=== PATIENT | male | born 1960 | race Caucasian/White ===

== ENCOUNTER 2020-07-19 15:25 | Inpatient (IN) | payer OTHER ==
--- NOTE | 2020-07-19 15:54 | BHS.RME ---
2019 N Coronavirus Screen - COVID-19 Screening Questions Dx of COVID-19 or had a positive test in the last 4 weeks?: No Contact with known/suspected COVID patient in last 14 days?: No Any of these symptoms or contact with someone who has?: None Traveled domestically/internationally in the last 14 days?: No Screen score: 0 Screen result: Further Evaluation Substance Use & Tx History - Substance Use History Alcohol Substance amount: 3 six packs beer + 1 pint hard liquor Frequency of use: Daily Substance route: Oral Date of Last Use: 07/18/20 (started age 16) Cocaine- Powder Substance amount: $30-40 Frequency of use: Daily Substance route: Injection (ex: intravenous or skin popping) Date of Last Use: 07/18/20 (started age 17) Xanax Substance amount: 2mg 2-3 tabs Frequency of use: Daily Substance route: Injection (ex: intravenous or skin popping) Date of Last Use: 07/16/20 (started this year ) Nicotine Substance amount: 5 cigg Frequency of use: Daily Substance route: Smoking Date of Last Use: 07/19/20 (started age 13) Physical/Psych/Mental Status - Behavior General Behavior: Increased activity (restlessness, agitation) Eye Contact: Normal - Cooperativeness Cooperativeness: Cooperative - Thinking Thought Processes: Tight, Logical, Goal Directed - Physical Health Problems Is patient presently having any pain?: No Does patient presently have any injuries (include location): No Does patient currently have a fever: No Is patient : No CIWA Nausea/Vomitin Muscle Tremors: 6 Anxiety: 5 Agitation: 4-Moderately Restless Paroxysmal Sweats: 4-Forehead w/Sweat Beads Orientation: 1-Uncertain about Date Tacttile Disturbances: 0-None Auditory Disturbances: 0-None Visual Disturbances: 0-None Headache: 2-Mild CIWA-Ar Total Score: 25
[2020-07-19 16:31] VITALS: BMI 26.4
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
[2020-07-19] MEDS ORDERED: METHOCARBAMOL 500 MG TABLET PO PRN (17:55)
[2020-07-19] MEDS ORDERED: chlordiazePOXIDE HCL 25 MG CAPSULE PO PRN (17:55)
[2020-07-19] MEDS ORDERED: MAGNESIUM HYDROX 2400MG/30ML ORAL SUSPENSION 30 ML CUP PO PRN (17:55)
[2020-07-19] MEDS ORDERED: IBUPROFEN 400 MG TABLET (FP) PO PRN (17:55)
[2020-07-19] MEDS ORDERED: NICOTINE POLACRILEX 2 MG GUM BUC PRN (17:55)
[2020-07-19] MEDS ORDERED: BISMUTH SUBSALICYLATE 524 MG/30 ML UD PO PRN (17:55)
[2020-07-19] MEDS ORDERED: MENTHOL/PHENOL 1 EACH UD MM PRN (17:55)
[2020-07-19] MEDS ORDERED: ONDANSETRON *ODT* 4 MG TABLET SL PRN (17:55)
[2020-07-19] MEDS ORDERED: MAG HYDROX/AL HYDROX/SIMETH 30 ML UNIT-DOSE CUP PO PRN (17:55)
[2020-07-19] MEDS ORDERED: ACETAMINOPHEN 325 MG TABLET (FP) PO PRN ×2 (17:55)
[2020-07-19] MEDS ORDERED: MAGNESIUM CITRATE 300 ML BOTTLE PO PRN (17:55)
[2020-07-19] MEDS ORDERED: ALBUTEROL SO4 HFA INHALER IH PRN (17:58)
[2020-07-19] MEDS: hydrOXYzine PAMOATE 25 MG CAPSULE (FP) PO SCH ×2 (19:27→22:18)
[2020-07-19] MEDS: chlordiazePOXIDE HCL 25 MG CAPSULE PO SCH ×2 (19:27→22:17)
[2020-07-19] MEDS: THIAMINE HCL 100 MG TABLET (FP) PO SCH (22:17)
[2020-07-19] MEDS: MELATONIN 5 MG TABLETS PO SCH (22:18)
[2020-07-20] MEDS: hydrOXYzine PAMOATE 25 MG CAPSULE (FP) PO SCH ×5 (05:43→22:12)
[2020-07-20] MEDS: chlordiazePOXIDE HCL 25 MG CAPSULE PO SCH ×4 (05:43→22:12)
[2020-07-20] MEDS ORDERED: amLODIPine BESYLATE 10 MG TABLET (FP) PO SCH (10:00)
[2020-07-20] MEDS ORDERED: PRENATAL VITAMINS W/ FOLIC ACID TABLET (FP) PO SCH (10:00)
[2020-07-20] MEDS ORDERED: NICOTINE 7 MG/24 HOURS TOPICAL PATCH TD SCH (10:00)
[2020-07-20 10:28] LABS: HEMATOCRIT 36.8 % (35.4-49); HEMOGLOBIN 12.1 GM/dL (11.7-16.9); MCH 32.2 pg (25.7-33.7); MCHC 32.9 g/dl (32.0-35.9); MEAN CELL VOLUME 97.7 fl (80-96); MEAN PLT VOLUME 9.6 fl (7.5-11.1); PLATELET COUNT 136 K/MM3 (134-434); RBC 3.77 M/mm3 (4.00-5.60); RDW 13.5 % (11.9-15.9); WHITE BLOOD COUNT 5.2 K/mm3 (4.0-10.0)
[2020-07-20 10:38] LABS: POTASSIUM 3.7 mmol/L (3.5-5.1)
[2020-07-20 10:50] LABS: CALCIUM 8.8 mg/dL (8.5-10.1)
[2020-07-20 10:51] LABS: BLOOD UREA NITROGEN 11.3 mg/dL (7-18)
[2020-07-20 10:54] LABS: CREATININE 0.6 mg/dL (0.55-1.3)
[2020-07-20 10:55] LABS: BILIRUBIN,TOTAL 0.2 mg/dL (0.2-1); TOT PROT 6.2 g/dl (6.4-8.2)
--- NOTE | 2020-07-20 12:36 | EKG ---
Test Reason : Blood Pressure : / mmHG Vent. Rate : 064 BPM Atrial Rate : 064 BPM P-R Int : 140 ms QRS Dur : 084 ms QT Int : 398 ms P-R-T Axes : 072 066 063 degrees QTc Int : 410 ms NORMAL SINUS RHYTHM NORMAL ECG NO PREVIOUS ECGS AVAILABLE Confirmed by Gene Shoemaker ([id number]) on 07/20/2020 12:35:58 PM Referred By: Confirmed By:Gene Shoemaker
--- NOTE | 2020-07-20 13:51 | PN ---
[facility] CIWA - CIWA Score Nausea/Vomitin-Mild Nausea/No Vomiting Muscle Tremors: 3 Anxiety: 3 Agitation: 2 Paroxysmal Sweats: No Perspiration Orientation: 0-Oriented Tacttile Disturbances: 1-Very Mild Itch/Numbness Auditory Disturbances: 0-None Visual Disturbances: 0-None Headache: 2-Mild CIWA-Ar Total Score: 12 S Progress Note (SOAP) Subjective: alert,irritable,anxious,interrupted sleep,tremor,aching pain in the body Objective: 07/20/20 13:48 Vital Signs Temperature 96.9 F L 07/20/20 08:48 Pulse Rate 68 07/20/20 08:48 Respiratory Rate 18 07/20/20 08:48 Blood Pressure 132/55 L 07/20/20 08:48 O2 Sat by Pulse Oximetry (%) 100 07/20/20 08:48 Laboratory Last Values WBC 5.2 K/mm3 (4.0-10.0) 07/20/20 07:00 RBC 3.77 M/mm3 (4.00-5.60) L 07/20/20 07:00 Hgb 12.1 GM/dL (11.7-16.9) 07/20/20 07:00 Hct 36.8 % (35.4-49) 07/20/20 07:00 MCV 97.7 fl (80-96) H 07/20/20 07:00 MCH 32.2 pg (25.7-33.7) 07/20/20 07:00 MCHC 32.9 g/dl (32.0-35.9) 07/20/20 07:00 RDW 13.5 % (11.9-15.9) 07/20/20 07:00 Plt Count 136 K/MM3 (134-434) 07/20/20 07:00 MPV 9.6 fl (7.5-11.1) 07/20/20 07:00 Sodium 143 mmol/L (136-145) 07/20/20 07:00 Potassium 3.7 mmol/L (3.5-5.1) 07/20/20 07:00 Chloride 112 mmol/L (98-107) H 07/20/20 07:00 Carbon Dioxide 26 mmol/L (21-32) 07/20/20 07:00 Anion Gap 5 MMOL/L (8-16) L 07/20/20 07:00 BUN 11.3 mg/dL (7-18) 07/20/20 07:00 Creatinine 0.6 mg/dL (0.55-1.3) 07/20/20 07:00 Est GFR (CKD-EPI)AfAm 128.45 07/20/20 07:00 Est GFR (CKD-EPI)NonAf 110.83 07/20/20 07:00 Random Glucose 92 mg/dL (74-106) 07/20/20 07:00 Calcium 8.8 mg/dL (8.5-10.1) 07/20/20 07:00 Total Bilirubin 0.2 mg/dL (0.2-1) 07/20/20 07:00 AST 28 U/L (15-37) 07/20/20 07:00 ALT 28 U/L (13-61) 07/20/20 07:00 Alkaline Phosphatase 100 U/L (45-117) 07/20/20 07:00 Total Protein 6.2 g/dl (6.4-8.2) L 07/20/20 07:00 Albumin 3.0 g/dl (3.4-5.0) L 07/20/20 07:00 Syphilis Serology Non-reactive (NONREACTIVE) 07/19/20 07:00 HIV Ag/Ab Combo Qual Negative (NEGATIVE) 07/19/20 07:00 Assessment: 07/20/20 13:50 withdrawal symptom Plan: continue detox librium regimen
--- NOTE | 2020-07-20 14:22 | CONSULT ---
[facility] Psychiatric Consult - Data Date of interview: 07/20/20 Admission source: Self-referred Identifying data: Mr Almodovar is a 60 years old male, homeless seeking detox treatment for alcohol, cocaine and benzodiazepine Substance Abuse History: RReports history of alcohol, cocaine and xanax use. Refer to addiction counselor's summary for further information Medical History: Significant for bronchial asthma, hypertension, migraine headache, history of treatment for tuberculosis, hepatitis C and orthosurgery for fracture left wrist. smokes 5 cigarettes daily Psychiatric History: Patient is known for multiple previous admissions to this facility. He was approached at bedside for psychiatric interview. Told typewriter repairer emir:" Get out of my room please. I don't want tgo see you"
[2020-07-20 20:57] VITALS: PULSE 75
[2020-07-20] MEDS: THIAMINE HCL 100 MG TABLET (FP) PO SCH (22:12)
[2020-07-20] MEDS: MELATONIN 5 MG TABLETS PO SCH (22:14)
[2020-07-21] MEDS ORDERED: chlordiazePOXIDE HCL 25 MG CAPSULE PO SCH (05:00)
[2020-07-21] MEDS: hydrOXYzine PAMOATE 25 MG CAPSULE (FP) PO SCH (05:43)
[2020-07-21 05:48] VITALS: BP 137/78
[2020-07-21 06:45] VITALS: TEMP 97.1
[2020-07-21] MEDS ORDERED: hydrOXYzine PAMOATE 25 MG CAPSULE (FP) PO PRN (06:52)
--- NOTE | 2020-07-21 08:19 | PN ---
Teaching Attending Note Name of Resident: Pelon Can ATTENDING PHYSICIAN STATEMENT I saw and evaluated the patient. I reviewed the resident's note and discussed the case with the resident. I agree with the resident's findings and plan as documented. SUBJECTIVE: OBJECTIVE: ASSESSMENT AND PLAN: Agree with resident's findings and plan for detox.
--- NOTE | 2020-07-21 08:43 | PN ---
[facility] CIWA - CIWA Score Nausea/Vomitin-Mild Nausea/No Vomiting Muscle Tremors: 2 Anxiety: 2 Agitation: 3 Paroxysmal Sweats: No Perspiration Orientation: 0-Oriented Tacttile Disturbances: 1-Very Mild Itch/Numbness Auditory Disturbances: 0-None Visual Disturbances: 0-None Headache: 1-Very Mild CIWA-Ar Total Score: 10 S Progress Note (SOAP) Subjective: alert,anxious,irritated,interrupted sleep,fartun saying i am leaving Objective: 07/21/20 13:42 Vital Signs Temperature 97.1 F L 07/21/20 05:20 Pulse Rate 75 07/21/20 05:20 Respiratory Rate 16 07/21/20 05:20 Blood Pressure 137/78 07/21/20 05:20 O2 Sat by Pulse Oximetry (%) 98 07/21/20 05:20 07/21/20 13:43 Laboratory Last Values WBC 5.2 K/mm3 (4.0-10.0) 07/20/20 07:00 RBC 3.77 M/mm3 (4.00-5.60) L 07/20/20 07:00 Hgb 12.1 GM/dL (11.7-16.9) 07/20/20 07:00 Hct 36.8 % (35.4-49) 07/20/20 07:00 MCV 97.7 fl (80-96) H 07/20/20 07:00 MCH 32.2 pg (25.7-33.7) 07/20/20 07:00 MCHC 32.9 g/dl (32.0-35.9) 07/20/20 07:00 RDW 13.5 % (11.9-15.9) 07/20/20 07:00 Plt Count 136 K/MM3 (134-434) 07/20/20 07:00 MPV 9.6 fl (7.5-11.1) 07/20/20 07:00 Sodium 143 mmol/L (136-145) 07/20/20 07:00 Potassium 3.7 mmol/L (3.5-5.1) 07/20/20 07:00 Chloride 112 mmol/L (98-107) H 07/20/20 07:00 Carbon Dioxide 26 mmol/L (21-32) 07/20/20 07:00 Anion Gap 5 MMOL/L (8-16) L 07/20/20 07:00 BUN 11.3 mg/dL (7-18) 07/20/20 07:00 Creatinine 0.6 mg/dL (0.55-1.3) 07/20/20 07:00 Est GFR (CKD-EPI)AfAm 128.45 07/20/20 07:00 Est GFR (CKD-EPI)NonAf 110.83 07/20/20 07:00 Random Glucose 92 mg/dL (74-106) 07/20/20 07:00 Calcium 8.8 mg/dL (8.5-10.1) 07/20/20 07:00 Total Bilirubin 0.2 mg/dL (0.2-1) 07/20/20 07:00 AST 28 U/L (15-37) 07/20/20 07:00 ALT 28 U/L (13-61) 07/20/20 07:00 Alkaline Phosphatase 100 U/L (45-117) 07/20/20 07:00 Total Protein 6.2 g/dl (6.4-8.2) L 07/20/20 07:00 Albumin 3.0 g/dl (3.4-5.0) L 07/20/20 07:00 Syphilis Serology Non-reactive (NONREACTIVE) 07/19/20 07:00 COVID-19 ([facility]) Not detected (Not Detected) 07/19/20 17:45 Hep A IgM Ab Confirm Negative (Negative) 07/20/20 07:00 Hep Bs Antigen Negative (Negative) 07/20/20 07:00 Hep B Core IgM Ab Negative (Negative) 07/20/20 07:00 Hepatitis C Ab (EIA) >11.0 s/co ratio (0.0-0.9) H 07/20/20 07:00 HIV Ag/Ab Combo Qual Negative (NEGATIVE) 07/19/20 07:00 Assessment: 07/21/20 13:43 withdrawal symptom Plan: continue detox librium regimen
--- NOTE | 2020-07-21 09:17 | DS ---
[facility] Detox Discharge Summary Admission Date: 07/19/20 Discharge Date: 07/21/20 - History Present History: Alcohol Dependence Additional Comments: alert,oriented x 3 lung clear on auscultation bilaterally no abdominal pain ambulation on the unit insist on leaving ,does not reveal any reason,,all attempts to convince patient to stay with no avail, signed release against medical advise,the risks of leaving including high relapsing,overdose,seizure,permanent disability addressed,patient acting abusive and threatening the staff,left against medical advise,advise to see his PCP for medical problem,and hepatitis c Pertinent Past History: asthma hypertension - Physical Exam Results Vital Signs: Vital Signs Temperature 97.1 F L 07/21/20 05:20 Pulse Rate 75 07/21/20 05:20 Respiratory Rate 16 07/21/20 05:20 Blood Pressure 137/78 07/21/20 05:20 O2 Sat by Pulse Oximetry (%) 98 07/21/20 05:20 Pertinent Admission Physical Exam Findings: withdrawal signs and symptom Laboratory Last Values WBC 5.2 K/mm3 (4.0-10.0) 07/20/20 07:00 RBC 3.77 M/mm3 (4.00-5.60) L 07/20/20 07:00 Hgb 12.1 GM/dL (11.7-16.9) 07/20/20 07:00 Hct 36.8 % (35.4-49) 07/20/20 07:00 MCV 97.7 fl (80-96) H 07/20/20 07:00 MCH 32.2 pg (25.7-33.7) 07/20/20 07:00 MCHC 32.9 g/dl (32.0-35.9) 07/20/20 07:00 RDW 13.5 % (11.9-15.9) 07/20/20 07:00 Plt Count 136 K/MM3 (134-434) 07/20/20 07:00 MPV 9.6 fl (7.5-11.1) 07/20/20 07:00 Sodium 143 mmol/L (136-145) 07/20/20 07:00 Potassium 3.7 mmol/L (3.5-5.1) 07/20/20 07:00 Chloride 112 mmol/L (98-107) H 07/20/20 07:00 Carbon Dioxide 26 mmol/L (21-32) 07/20/20 07:00 Anion Gap 5 MMOL/L (8-16) L 07/20/20 07:00 BUN 11.3 mg/dL (7-18) 07/20/20 07:00 Creatinine 0.6 mg/dL (0.55-1.3) 07/20/20 07:00 Est GFR (CKD-EPI)AfAm 128.45 07/20/20 07:00 Est GFR (CKD-EPI)NonAf 110.83 07/20/20 07:00 Random Glucose 92 mg/dL (74-106) 07/20/20 07:00 Calcium 8.8 mg/dL (8.5-10.1) 07/20/20 07:00 Total Bilirubin 0.2 mg/dL (0.2-1) 07/20/20 07:00 AST 28 U/L (15-37) 07/20/20 07:00 ALT 28 U/L (13-61) 07/20/20 07:00 Alkaline Phosphatase 100 U/L (45-117) 07/20/20 07:00 Total Protein 6.2 g/dl (6.4-8.2) L 07/20/20 07:00 Albumin 3.0 g/dl (3.4-5.0) L 07/20/20 07:00 Syphilis Serology Non-reactive (NONREACTIVE) 07/19/20 07:00 COVID-19 ([facility]) Not detected (Not Detected) 07/19/20 17:45 Hep A IgM Ab Confirm Negative (Negative) 07/20/20 07:00 Hep Bs Antigen Negative (Negative) 07/20/20 07:00 Hep B Core IgM Ab Negative (Negative) 07/20/20 07:00 Hepatitis C Ab (EIA) >11.0 s/co ratio (0.0-0.9) H 07/20/20 07:00 HIV Ag/Ab Combo Qual Negative (NEGATIVE) 07/19/20 07:00 Vital Signs Temperature 97.1 F L 07/21/20 05:20 Pulse Rate 75 07/21/20 05:20 Respiratory Rate 16 07/21/20 05:20 Blood Pressure 137/78 07/21/20 05:20 O2 Sat by Pulse Oximetry (%) 98 07/21/20 05:20 - Medication Discharge Medications: Ambulatory Orders Albuterol Sulfate Inhaler - [Ventolin HFA Inhaler -] 2 inh PO Q4H PRN #1 inhaler 07/21/20 Amlodipine Besylate [Norvasc -] 10 mg PO DAILY #30 tablet 07/21/20 - Diagnosis (1) Alcohol dependence with uncomplicated withdrawal Status: Acute (2) Syncope Status: Acute (3) Hypertension Status: Acute (4) Asthma Status: Acute (5) Hepatitis C Status: Acute - AMA Did Patient Leave Against Medical Advice: Yes
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
[2020-07-21] MEDS ORDERED: amLODIPine BESYLATE 10 MG TABLET (FP) PO SCH (10:00)
[2020-07-21] MEDS ORDERED: FLU VACCINE (FLULAVAL) PF 60 MCG/0.5 ML SYRINGE 2020-2021 IM ONE (12:00)
[2020-07-21] MEDS ORDERED: PNEUMOCOCCAL 23 VACCINE 0.5 ML VIAL IM ONE (12:00)
[2020-07-21] MEDS ORDERED: PNEUMOC 13-VAL CONJ-DIP CRM/PF 0.5 ML DISP.SYRIN IM ONE (12:00)
[2020-07-22] MEDS ORDERED: chlordiazePOXIDE HCL 10 MG CAPSULE PO PRN
[2020-07-22] MEDS ORDERED: chlordiazePOXIDE HCL 10 MG CAPSULE PO SCH (05:00)
[2020-07-23] MEDS ORDERED: chlordiazePOXIDE HCL 10 MG CAPSULE PO SCH (05:00)
[2020-07-24] MEDS ORDERED: chlordiazePOXIDE HCL 10 MG CAPSULE PO ONE (05:00)
== END 2020-07-21 09:13 | disposition home or self-care (01) | DRG 774 ==
LOC: YASAS 15:25 → Y6N 17:25
PROVIDERS: ADMIT Allergy & Immunology; ATTEND Allergy & Immunology
PROC: HZ2ZZZZ Detoxification Services for Substance Abuse Treatment (ICD-10-PCS; principal; 2020-07-19)
DX: F10.230 Alcohol dependence with withdrawal, uncomplicated (principal); F14.20 Cocaine dependence, uncomplicated; F13.20 Sedative, hypnotic or anxiolytic dependence, uncomplicated; F17.210 Nicotine dependence, cigarettes, uncomplicated; I10 Essential (primary) hypertension; J45.909 Unspecified asthma, uncomplicated; B18.2 Chronic viral hepatitis C; R76.11 Nonspecific reaction to tuberculin skin test without active tuberculosis; R63.4 Abnormal weight loss; Z68.26 Body mass index [BMI] 26.0-26.9, adult; Z87.81 Personal history of (healed) traumatic fracture; Z88.0 Allergy status to penicillin; Z91.011 Allergy to milk products; Z91.018 Allergy to other foods; Z59.0 Homelessness
CPT/HCPCS: 36415; 71046-TC-FY; 80053; 80074; 85027; 86780; 87389; 93005; 93010; C9803; U0003

== ENCOUNTER 2021-04-25 13:50 | Inpatient (IN) | payer OTHER ==
[2021-04-25 15:20] VITALS: BMI 29.5
[2021-04-25] MEDS ORDERED: MAG HYDROX/AL HYDROX/SIMETH 30 ML UNIT-DOSE CUP PO PRN (15:59)
[2021-04-25] MEDS ORDERED: ONDANSETRON *ODT* 4 MG TABLET SL PRN (15:59)
[2021-04-25] MEDS ORDERED: METHOCARBAMOL 500 MG TABLET PO PRN (15:59)
[2021-04-25] MEDS ORDERED: MAGNESIUM CITRATE 300 ML BOTTLE PO PRN (15:59)
[2021-04-25] MEDS ORDERED: MAGNESIUM HYDROX 2400MG/30ML ORAL SUSPENSION 30 ML CUP PO PRN (15:59)
[2021-04-25] MEDS ORDERED: LORazepam 1 MG TABLET PO PRN (15:59)
[2021-04-25] MEDS ORDERED: IBUPROFEN 400 MG TABLET (FP) PO PRN (15:59)
[2021-04-25] MEDS ORDERED: MENTHOL/PHENOL 1 EACH UD MM PRN (15:59)
[2021-04-25] MEDS ORDERED: ACETAMINOPHEN 325 MG TABLET (FP) PO PRN ×2 (15:59)
[2021-04-25] MEDS ORDERED: BISMUTH SUBSALICYLATE 524 MG/30 ML PO PRN (15:59)
[2021-04-25] MEDS ORDERED: ALBUTEROL SO4 HFA INHALER IH PRN (16:02)
[2021-04-25] MEDS: NICOTINE 21 MG/24 HOURS TOPICAL PATCH TD SCH (17:52)
[2021-04-25] MEDS: hydrOXYzine PAMOATE 25 MG CAPSULE (FP) PO SCH ×2 (17:52→22:08)
[2021-04-25] MEDS: PRENATAL VITAMINS W/ FOLIC ACID TABLET (FP) PO SCH (17:53)
[2021-04-25] MEDS: LORazepam 2 MG TABLET PO SCH ×2 (17:54→22:08)
[2021-04-25] MEDS: NICOTINE 10 MG CARTRIDGE (INHALER) IH PRN (17:59)
[2021-04-25] MEDS: THIAMINE HCL 100 MG TABLET (FP) PO SCH (22:07)
[2021-04-25] MEDS: MELATONIN 5 MG TABLETS PO SCH (22:07)
[2021-04-26] MEDS: hydrOXYzine PAMOATE 25 MG CAPSULE (FP) PO SCH ×5 (05:28→22:20)
[2021-04-26] MEDS: LORazepam 2 MG TABLET PO SCH ×4 (05:28→22:20)
[2021-04-26] MEDS: PRENATAL VITAMINS W/ FOLIC ACID TABLET (FP) PO SCH (10:08)
[2021-04-26] MEDS: amLODIPine BESYLATE 10 MG TABLET (FP) PO SCH (10:08)
[2021-04-26] MEDS: NICOTINE 21 MG/24 HOURS TOPICAL PATCH TD SCH (10:09)
[2021-04-26 10:10] LABS: HEMATOCRIT 37.4 % (35.4-49); HEMOGLOBIN 12.7 GM/dL (11.7-16.9); MCH 31.7 pg (25.7-33.7); MEAN CELL VOLUME 93.5 fl (80-96); MEAN PLT VOLUME 9.2 fl (7.5-11.1); PLATELET COUNT 147 10^3/uL (134-434); RDW 12.9 % (11.9-15.9); WHITE BLOOD COUNT 4.5 K/mm3 (4.0-10.0)
[2021-04-26 10:31] LABS: ALBUMIN 3.4 g/dl (3.4-5.0); BLOOD UREA NITROGEN 14.8 mg/dL (7-18)
[2021-04-26 10:35] LABS: CREATININE 0.6 mg/dL (0.55-1.3)
[2021-04-26 10:36] LABS: BILIRUBIN,TOTAL 0.6 mg/dL (0.2-1); TOT PROT 6.9 g/dl (6.4-8.2)
[2021-04-26 10:38] LABS: CALCIUM 8.1 mg/dL (8.5-10.1)
[2021-04-26 15:31] LABS: HIV INTERPRETATION NEGATIVE (NEGATIVE)
[2021-04-26] MEDS: THIAMINE HCL 100 MG TABLET (FP) PO SCH (22:20)
[2021-04-26] MEDS: MELATONIN 5 MG TABLETS PO SCH (22:20)
[2021-04-27] MEDS: hydrOXYzine PAMOATE 25 MG CAPSULE (FP) PO SCH ×4 (05:56→18:05)
[2021-04-27] MEDS: LORazepam 1 MG TABLET PO SCH ×3 (05:56→18:05)
[2021-04-27] MEDS: NICOTINE 10 MG CARTRIDGE (INHALER) IH PRN (08:44)
[2021-04-27] MEDS: amLODIPine BESYLATE 10 MG TABLET (FP) PO SCH (10:27)
[2021-04-27] MEDS: PRENATAL VITAMINS W/ FOLIC ACID TABLET (FP) PO SCH (10:27)
[2021-04-27] MEDS: NICOTINE 21 MG/24 HOURS TOPICAL PATCH TD SCH (10:43)
[2021-04-27 12:50] VITALS: BP 120/69; PULSE 88; TEMP 97.3
[2021-04-28] MEDS ORDERED: LORazepam 0.5 MG TABLET PO PRN
[2021-04-28] MEDS ORDERED: LORazepam 0.5 MG TABLET PO SCH (05:00)
[2021-04-29] MEDS ORDERED: LORazepam 0.5 MG TABLET PO ONE (05:00)
== END 2021-04-27 22:30 | disposition left against medical advice (07) | DRG 770 ==
LOC: YASAS 13:50 → Y3N 17:04
PROVIDERS: ADMIT Allergy & Immunology; ATTEND Allergy & Immunology
PROC: HZ2ZZZZ Detoxification Services for Substance Abuse Treatment (ICD-10-PCS; principal; 2021-04-25)
DX: F10.230 Alcohol dependence with withdrawal, uncomplicated (principal); F13.20 Sedative, hypnotic or anxiolytic dependence, uncomplicated; F14.20 Cocaine dependence, uncomplicated; F17.210 Nicotine dependence, cigarettes, uncomplicated; I10 Essential (primary) hypertension; J45.20 Mild intermittent asthma, uncomplicated; B18.2 Chronic viral hepatitis C; E66.9 Obesity, unspecified; Z68.29 Body mass index [BMI] 29.0-29.9, adult; R26.2 Difficulty in walking, not elsewhere classified; Z99.89 Dependence on other enabling machines and devices; Z88.0 Allergy status to penicillin; Z91.011 Allergy to milk products; Z91.018 Allergy to other foods; Z59.0 Homelessness
CPT/HCPCS: 36415; 71046-TC-FY; 80053; 85027; 86780; 87389; C9803; U0003; U0005

== ENCOUNTER 2021-05-30 13:42 | Inpatient (IN) | payer OTHER ==
[2021-05-30 15:38] VITALS: BMI 31.3
[2021-05-30] MEDS ORDERED: MAGNESIUM HYDROX 2400MG/30ML ORAL SUSPENSION 30 ML CUP PO PRN (16:32)
[2021-05-30] MEDS ORDERED: NICOTINE 10 MG CARTRIDGE (INHALER) IH PRN (16:32)
[2021-05-30] MEDS ORDERED: MENTHOL/PHENOL 1 EACH UD MM PRN (16:32)
[2021-05-30] MEDS ORDERED: BISMUTH SUBSALICYLATE 524 MG/30 ML PO PRN (16:32)
[2021-05-30] MEDS ORDERED: MAGNESIUM CITRATE 300 ML BOTTLE PO PRN (16:32)
[2021-05-30] MEDS ORDERED: ONDANSETRON *ODT* 4 MG TABLET SL PRN (16:32)
[2021-05-30] MEDS ORDERED: MAG HYDROX/AL HYDROX/SIMETH 30 ML UNIT-DOSE CUP PO PRN (16:32)
[2021-05-30] MEDS ORDERED: ACETAMINOPHEN 325 MG TABLET (FP) PO PRN ×2 (16:32)
[2021-05-30] MEDS ORDERED: METHOCARBAMOL 500 MG TABLET PO PRN (16:32)
[2021-05-30] MEDS ORDERED: diazePAM 5 MG TABLET PO PRN (16:33)
[2021-05-30] MEDS ORDERED: LIDOCAINE 5% TOPICAL PATCH TP SCH (16:45)
[2021-05-30] MEDS: diazePAM 5 MG TABLET PO SCH ×2 (17:39→22:30)
[2021-05-30] MEDS: hydrOXYzine PAMOATE 25 MG CAPSULE (FP) PO SCH ×2 (17:39→22:33)
[2021-05-30] MEDS: IBUPROFEN 400 MG TABLET (FP) PO PRN (17:40)
[2021-05-30] MEDS ORDERED: MELATONIN 5 MG TABLETS PO SCH (22:00)
[2021-05-30] MEDS ORDERED: LIDOCAINE PATCH REMOVAL MC SCH (22:00)
[2021-05-30] MEDS ORDERED: THIAMINE HCL 100 MG TABLET (FP) PO SCH (22:00)
[2021-05-31] MEDS: diazePAM 5 MG TABLET PO SCH (05:55)
[2021-05-31] MEDS: IBUPROFEN 400 MG TABLET (FP) PO PRN (05:56)
[2021-05-31] MEDS: hydrOXYzine PAMOATE 25 MG CAPSULE (FP) PO SCH (06:24)
[2021-05-31 09:02] VITALS: BP 150/81; PULSE 80; TEMP 99.8
[2021-05-31] MEDS ORDERED: PRENATAL VITAMINS W/ FOLIC ACID TABLET (FP) PO SCH (10:00)
[2021-05-31] MEDS ORDERED: NICOTINE 7 MG/24 HOURS TOPICAL PATCH TD SCH (10:00)
[2021-05-31 10:43] LABS: HEMATOCRIT 39.5 % (35.4-49); HEMOGLOBIN 13.3 GM/dL (11.7-16.9); MCH 32.1 pg (25.7-33.7); MCHC 33.7 g/dl (32.0-35.9); MEAN CELL VOLUME 95.3 fl (80-96); MEAN PLT VOLUME 9.2 fl (7.5-11.1); PLATELET COUNT 157 10^3/uL (134-434); RBC 4.15 M/mm3 (4.00-5.60); RDW 14.3 % (11.9-15.9); WHITE BLOOD COUNT 5.6 K/mm3 (4.0-10.0)
[2021-05-31 11:00] LABS: CALCIUM 8.8 mg/dL (8.5-10.1)
[2021-05-31 11:01] LABS: ALBUMIN 3.8 g/dl (3.4-5.0); BLOOD UREA NITROGEN 11.2 mg/dL (7-18)
[2021-05-31 11:04] LABS: CREATININE 0.6 mg/dL (0.55-1.3)
[2021-05-31 11:05] LABS: BILIRUBIN,TOTAL 0.3 mg/dL (0.2-1); TOT PROT 7.8 g/dl (6.4-8.2)
[2021-06-01] MEDS ORDERED: diazePAM 5 MG TABLET PO SCH (06:00)
[2021-06-02] MEDS ORDERED: diazePAM 5 MG TABLET PO SCH (06:00)
[2021-06-03] MEDS ORDERED: diazePAM 5 MG TABLET PO ONE (06:00)
== END 2021-05-31 09:10 | disposition left against medical advice (07) | DRG 770 ==
LOC: YASAS 13:42 → Y6N 16:01
PROVIDERS: ADMIT Allergy & Immunology; ATTEND Allergy & Immunology
PROC: HZ2ZZZZ Detoxification Services for Substance Abuse Treatment (ICD-10-PCS; principal; 2021-05-30)
DX: F10.230 Alcohol dependence with withdrawal, uncomplicated (principal); F17.210 Nicotine dependence, cigarettes, uncomplicated; I10 Essential (primary) hypertension; J45.909 Unspecified asthma, uncomplicated; S22.43XD Multiple fractures of ribs, bilateral, subsequent encounter for fracture with routine healing; V49.9XXD Car occupant (driver) (passenger) injured in unspecified traffic accident, subsequent encounter; Z88.0 Allergy status to penicillin; Z91.018 Allergy to other foods; Z91.011 Allergy to milk products
CPT/HCPCS: 36415; 80053; 85027; 86780; C9803; U0003; U0005